=== PATIENT | female | born 2005 | race Caucasian/White ===

== ENCOUNTER 2025-03-24 21:02 | Emergency (ER) | payer OTHER ==
[~2025-03-24] VITALS: Ht 172.7 cm; Wt 75.0 kg
[2025-03-24 21:11] VITALS: BP 139/68; PULSE 102; RESP 18; TEMP 36.9; O2SAT 100
[2025-03-24] MEDS: SODIUM CHLORIDE 0.9% 1,000 ML IV ONE (21:30)
[2025-03-24] MEDS: ONDANSETRON HCL 4MG/2ML INJ IV ONE (21:30)
== END 2025-03-24 23:07 | disposition home or self-care (01) ==
LOC: ER 21:02
DX: F10.129 Alcohol abuse with intoxication, unspecified (principal); Y90.9 Presence of alcohol in blood, level not specified
CPT/HCPCS: 99283; J7030